=== PATIENT | male | born 1970 | race Caucasian/White ===

== ENCOUNTER → 2017-10-01 | Outpatient (CLI) | payer OTHER | LOC: BMCIMAGING 17:47 | PROVIDERS: ATTEND Family Medicine | DX: S62.601A Fracture of unspecified phalanx of left index finger, initial encounter for closed fracture (principal) ==

== ENCOUNTER → 2018-05-18 | Outpatient (CLI) | payer OTHER | LOC: FIMAGING 08:25 | PROVIDERS: ATTEND Surgery | DX: K82.8 Other specified diseases of gallbladder (principal) | CPT/HCPCS: 78227; A9537 ==